=== PATIENT | male | born 1955 | race Caucasian/White ===

== ENCOUNTER 2024-11-01 03:12 | Inpatient (IN) | payer MEDICARE, BC ==
[~2024-11-01] VITALS: Ht 182.9 cm; Wt 95.0 kg
[2024-11-01] VITALS (9 sets, daily range): BP systolic 122; BP diastolic 73; PULSE 78–102; RESP 15–30; O2SAT 94–98
--- NOTE | 2024-11-01 04:09 | ED.PDOC ---
SOB-HPI HPI Comments 68-year-old male came to emergency room via EMS due to shortness of breath. Patient has history of hypertension, thyroid disease and COPD. Was seen at [facility] for shortness of breath and was diagnosed to be COPD exacerbation, Influenza A. Patient was being transferred here due to lack of facilities. Patient was saturating atb90% on room air upon arrival Chief Complaint: Shortness of Breath Time Seen by MD: 03:33 Reviewed notes: Nurses Notes Information Source: Patient Mode of Arrival: EMS Severity: Moderate Timing: Hours Duration: Since onset Context: With Light Exertion PE Risk Factors: None History of: COPD, CHF Prehospital treatment: Oxygen Modifying Factors: Nothing Associated Signs and Symptoms: Wheeze, Cough, Sore Throat, Chest Pain Quality: Squeezing Radiation: No Radiation Review of Systems REVIEW OF SYSTEMS: No fever, no chills, or fatigue HEENT: No sore throat, no earache, no congestion, no neck pain. Cardiac: No chest pain. No palpitations. Lungs: (+)shortness of breath, no cough. GI: No nausea, no vomiting, no diarrhea, no constipation, no abdominal pain : No dysuria, frequency, or urgency. No hematuria. Musculoskeletal: No joint pain , no joint swelling, no extremity edema. Skin: No rash, no itching. Neuro: No headache, no dizziness, no weakness Vital Signs Vital Signs Date Time Temp Pulse Resp B/P (MAP) Pulse Ox O2 Delivery O2 Flow Rate FiO2 11/01/24 04:38 18 93 Nasal Cannula* 6 44 11/01/24 03:42 97.7 94 130/74 (92) Physical Exam General: Awake, alert and oriented. No acute distress. Skin: Skin in warm, dry and intact. Appropriate color for ethnicity. Nailbeds pink with no cyanosis. HEENT: The head is normocephalic and atraumatic. Conjunctivae are clear without exudates or hemorrhage. Sclera is non-icteric. EOM are intact. No signs of n ystagmus. Eyelids are normal in appearance without swelling or lesions. Oral mucosa is pink and moist Neck: The neck is supple with normal range of motion. No JVD. Cardiac: Heart rate and rhythm are normal. No murmurs, gallops, or rubs are auscultated. Respiratory: No signs of respiratory distress. Lung sounds are clear in all lobes bilaterally without rales, ronchi, or wheezes. Abdominal: Abdomen is soft, non-tender without distention. Bowel sounds are present and normoactive in all four quadrants. Extremities: Upper and lower extremities are atraumatic in appearance without deformity or edema. Neurological: The patient is awake, alert and oriented to person, place, and time with normal speech. Speech is clear. There is no facial asymmetry. Psychiatric: Appropriate mood and affect. Good judgement and insight. No visual or auditory hallucinations. Past Medical History PAST MEDICAL HISTORY: COPD, HTN, Thyroid Surgical History: CABG Family History Family History: Reviewed,noncontributory to illness Social History Smoker: Non-Smoker Alcohol: Denies ETOH Use Drugs: Denies Drug Use Lives In: Home Was a procedure done? Was a procedure done?: No Differential Dx Differential Diagnosis: Anxiety, Asthma, Bronchitis, COPD, Pneumonia, Respiratory Distress X-Ray, Labs, Meds, VS Vital Signs Date Time Temp Pulse Resp B/P (MAP) Pulse Ox O2 Delivery O2 Flow Rate FiO2 11/01/24 04:38 18 93 Nasal Cannula* 6 44 11/01/24 03:42 97.7 94 24 130/74 (92) 90 Lab Test 11/01/24 04:13 Range/Units White Blood Count 9.8 4.4-10.8 10^3/uL Red Blood Count 5.22 4.5-5.90 10^6/uL Hemoglobin 16.5 13.5-17.5 g/dL Hematocrit 50.4 41.0-53.0 % Mean Corpuscular Volume 96.6 80.0-100.0 fL Mean Corpuscular Hemoglobin 31.6 28.0-32.0 pg Mean Corpuscular Hemoglobin Concent 32.7 32.0-36.0 g/dL Red Cell Distribution Width 14.8 H 11.8-14.3 % Platelet Count 206 140-450 10^3/uL Mean Platelet Volume 8.1 6.9-10.8 fL Neutrophils (%) (Auto) 94.3 H 37.0-80.0 % Lymphocytes (%) (Auto) 2.6 L 10.0-50.0 % Monocytes (%) (Auto) 2.8 0.0-12.0 % Eosinophils (%) (Auto) 0.0 0.0-7.0 % Basophils (%) (Auto) 0.3 0.0-2.0 % Neutrophils # (Auto) 9.2 H 1.6-8.6 10 ^3/uL Lymphocytes # (Auto) 0.3 L 0.4-5.4 10 ^3/uL Monocytes # (Auto) 0.3 0-1.3 10 ^3/uL Eosinophils # (Auto) 0 0-0.8 10 ^3/uL Basophils # (Auto) 0 0-0.2 10 ^3/uL Nucleated Red Blood Cells 0.0 % Sodium Level 142 136-145 mmol/L Potassium Level 3.7 3.5-5.1 mmol/L Chloride Level 110 H 98-107 mmol/L Carbon Dioxide Level 21 20-31 mmol/L Anion Gap 11 5-15 Blood Urea Nitrogen 19 9-23 mg/dL Creatinine 1.07 0.700-1.30 mg/dL Glomerular Filtration Rate Calc 75 >90 mL/min BUN/Creatinine Ratio 17.8 10.0-20.0 Serum Glucose 215 H 74-106 mg/dL Calcium Level 8.3 L 8.7-10.4 mg/dL Total Bilirubin < 0.2 L 0.2-1.0 mg/dL Aspartate Amino Transferase (AST) 54 H 13-40 U/L Alanine Aminotransferase (ALT) 27 7-40 U/L Alkaline Phosphatase 67 46-116 U/L Troponin I High Sensitivity 157 *H </=54 ng/L Total Protein 6.2 5.7-8.2 g/dL Albumin 3.7 3.2-4.8 g/dL Current Medications Medications (Trade) Dose Ordered Sig/Snehal Route Start Time Stop Time Status Last Admin Albuterol (Ventolin Medneb) 2.5 mg ONCE ONCE NEB 11/01/24 04:15 11/01/24 04:16 DC 11/01/24 04:48 Time of 1ST Reevaluation: 04:12 Reevaluation 1ST: Unchanged Patient Education/Counseling: Diagnosis, Treatment Family Education/Counseling: No Family Present Departure 1 Departure Time of Disposition: 04:08 Impression: Primary Impression: COPD exacerbation Additional Impression: Influenza Disposition: 09 ADMITTED INPATIENT Comments 68-year-old male transferred from [place] with COPD exacerbation, influenza infection. Patient admitted for further treatment, evaluation and monitoring. Extensive evaluation was performed in attempt to identify or rule out: (See differential diagnosis section) The following tests were ordered, and results were reviewed by me: (See d iagnostic results section) The following test were independently interpreted by me: N/A I reviewed and agreed with the following test results read by other providers: N/A I reviewed the following notes from the pt's past medical encounters: (None available at this time) Additional information was gathered from interviewing the following independent historians: N/A Discussion of management or test interpretation with external physician/other qualified health client care representative: N/A Addressed [ ]one or more chronic illnesses with severe exacerbation, progression, or side effects of treatment: [ ]an acute or chronic illness that poses a threat to life or bodily function: [ ] Decision regarding hospitalization or escalation of hospital level of care: Risk and benefits of admission for further treatment of patient's condition was considered. Due to patient's current clinical condition, high risk of decline and poor outcome if discharged and need for further inpatient management and monitoring, patient will be admitted to the hospital. Drug therapy requiring intensive monitoring for toxicity: N/A Parenteral controlled substances: N/A Decision regarding elective major surgery with identified patient or procedure risk factors: N/A Decision regarding emergency major surgery: N/A Decision not to resuscitate or to de-escalate care because of poor prognosis: N/A Diagnosis or treatment significantly limited by social determinants of health: N/A Decision regarding hospitalization or escalation of hospital level of care: Risks and benefits of admission for further treatment of patient's condition was considered however due to patient's stable condition patient will be discharged to follow up closely or return to care for worsening of condition or inability to follow up. Critical Care Note Critical Care Time?: No Stability Stability form required: No Heart Score Heart Score: Heart Score Response (Comments) Value History Moderate Suspicious 1 EKG Repolarization Disturb 1 Age >65 2 Risk Factors >3 or Hx ASHD 2 Troponin >3 x's Normal limit 2 Total 8 I personally scribed for MAC PUTNAM MD ([email or web address]) on 11/01/24 at 04:17. Daniela ctronically submitted by Enoch Leija ([facility]). I personally scribed for MAC PUTNAM MD ([email or web address]) on 11/01/24 at 04:18. Electronically submitted by Enoch Leija ([facility]). I personally scribed for MAC PUTNAM MD ([email or web address]) on 11/01/24 at 04:55. Electronically submitted by Enoch Leija ([facility]). MAC PUTNAM MD Nov 01, 2024 04:09
[2024-11-01 04:33] LABS: Basophils # (auto) 0 10 ^3/uL (0-0.2); Basophils % (auto) 0.3 % (0.0-2.0); Eosinophils # (auto) 0 10 ^3/uL (0-0.8); Hematocrit 50.4 % (41.0-53.0); Hemoglobin 16.5 g/dL (13.5-17.5); Lymphocytes # (auto) 0.3 10 ^3/uL (0.4-5.4); Lymphocytes % (auto) 2.6 % (10.0-50.0); Mean Corpuscular Hemoglobin 31.6 pg (28.0-32.0); Mean Corpuscular Hgb Conc. 32.7 g/dL (32.0-36.0); Mean Corpuscular Volume 96.6 fL (80.0-100.0); Monocytes # (auto) 0.3 10 ^3/uL (0-1.3); Monocytes % (auto) 2.8 % (0.0-12.0); Neutrophils # (auto) 9.2 10 ^3/uL (1.6-8.6); Neutrophils % (auto) 94.3 % (37.0-80.0); Platelet Count (auto) 206 10^3/uL (140-450); Red Blood Cells 5.22 10^6/uL (4.5-5.90); Red Cell Distribution Width 14.8 % (11.8-14.3); White Blood Cell 9.8 10^3/uL (4.4-10.8)
[2024-11-01 04:48] LABS: Alanine Aminotransferase 27 U/L (7-40); Albumin 3.7 g/dL (3.2-4.8); Alkaline Phosphatase 67 U/L (46-116); Anion Gap 11 (5-15); BUN/Creatinine Ratio 17.8 (10.0-20.0); Blood Urea Nitrogen 19 mg/dL (9-23); Carbon Dioxide 21 mmol/L (20-31); Potassium 3.7 mmol/L (3.5-5.1); Sodium 142 mmol/L (136-145); Total Protein 6.2 g/dL (5.7-8.2)
[2024-11-01] MEDS: ALBUTEROL SULF 2.5 MG/0.5ML(0.5%) NEB SOLN NEB ONE (04:48)
[2024-11-01 04:50] LABS: Aspartate Aminotransferase 54 U/L (13-40); Bilirubin, Total < 0.2 mg/dL (0.2-1.0); Calcium 8.3 mg/dL (8.7-10.4); Chloride 110 mmol/L (98-107); Glucose 215 mg/dL (74-106)
--- NOTE | 2024-11-01 05:34 | DVH ---
EXAM: XY CHEST XRAY 1 VIEW Indication: Shortness of breath Technique: Single frontal view of the chest was obtained Comparison: None FINDINGS: Lines and Tubes: None Lungs: Mild pulmonary vascular congestion. Pleura: No effusion. No pneumothorax. Cardiomediastinal contours: Mild cardiomegaly. Bones: No acute osseous abnormality. IMPRESSION: Mild cardiomegaly with pulmonary vascular congestion.
[2024-11-01] MEDS: ACETAMINOPHEN 325 MG TAB PO ONE (12:51)
[2024-11-01] MEDS ORDERED: ALBUTEROL SULF 2.5 MG/0.5ML(0.5%) NEB SOLN NEB PRN ×2 (13:15→13:30)
[2024-11-01] MEDS ORDERED: IPRATROPIUM BROM 0.5 MG/2.5ML INH SOL NEB SCH (14:00)
[2024-11-01] MEDS ORDERED: ALBUTEROL SULF 2.5 MG/0.5ML(0.5%) NEB SOLN NEB SCH (14:00)
--- NOTE | 2024-11-01 14:03 | DVHHP2 ---
History of Present Illness Reason for Visit: Shortness of breaths due to COPD exacerbation History of Present Illness This is a 68-year-old male with history of COPD not on oxygen and CHF presents to ED via EMS with chief complaint of shortness of breaths that started early this morning. The patient was recently seen at [facility] for shortness of breaths in which he was diagnosed with COPD exacerbation and influenza A. He was transferred from there to this facility for further evaluation and recommendation. During evaluation of patient, currently on 5 L n lawrence cannula with SpO2 91% at the bedside monitor. He states that he was diagnosed with COPD many many years ago due to smoking history currently smokes less than one pack of cigarette a day and has not been on oxygen for several years. He is concerned about his symptoms and would like to be further evaluated. The patient will be admitted under hospitalist care to the medical-surgical unit for further evaluation and recommendation. The patient denies fever, chills, headache, dizziness, palpitation, chest pain, nausea, vomiting, abdominal pain, diarrhea, constipation and other associated symptoms. The plan has been discussed with the patient and primary RN in which all questions concerns have been addressed. Cardiovascular: HTN Pulmonary: COPD Past Surgical History: CABG Family History: None Smoke: <1 pack per day ALCOHOL: none Drugs: None Lives: with Family Domestic Violence: Neg Review of Systems Respiratory: Shortness of breath Allergies: Coded Allergies: Penicillins (Unverified Allergy, Unknown, 11/01/24) Medications Current Medications Medications Dose Ordered Sig/Snehal Route Start Time Stop Time Status Last Admin Dose Admin Ipratropium [place] 0.5 mg Q4HR NEB 11/01/24 14:00 UNV Enoxaparin Sodium 40 mg DAILY SC 11/02/24 10:00 UNV Albuterol 2.5 mg Q2HPRN PRN NEB 11/01/24 13:30 UNV Albuterol 2.5 mg Q4HR NEB 11/01/24 14:00 UNV Exam Vital Signs Vital Signs Date Time Temp Pulse Resp B/P (MAP) Pulse Ox O2 Delivery O2 Flow Rate FiO2 11/01/24 13:22 91 11/01/24 12:00 16 133/65 (87) 90 11/01/24 08:32 Nasal Cannula* 6 44 11/01/24 05:04 97.7 97.7 General Appearance: Alert, Oriented X3, Cooperative, No acute distress HEENT: Atraumatic, PERRLA, Mucous membr. moist/pink Respiratory: Other (Inspiratory wheezing throughout) Cardiovascular: Regular rate, Normal S1, Normal S2, No murmurs Abdominal: Normal bowel sounds, Soft, No tenderness, No hepatospenomegaly, No masses Extremities: No clubbing, No cyanosis, No edema, Normal pulses, No tenderness/swelling Skin: No rashes, No breakdown Neuro: Normal speech, Strength at 5/5 X4 ext, Normal tone, Sensation intact, Cranial nerves 3-12 NL Psych/Mental Status: Mental status NL Labs/Xrays Labs Test 11/01/24 06:13 11/01/24 04:13 Range/Units Troponin I High Sensitivity 147 *H </=54 ng/L White Blood Count 9.8 4.4-10.8 10^3/uL Red Blood Count 5.22 4.5-5.90 10^6/uL Hemoglobin 16.5 13.5-17.5 g/dL Hematocrit 50.4 41.0-53.0 % Mean Corpuscular Volume 96.6 80.0-100.0 fL Mean Corpuscular Hemoglobin 31.6 28.0-32.0 pg Mean Corpuscular Hemoglobin Concent 32.7 32.0-36.0 g/dL Red Cell Distribution Width 14.8 H 11.8-14.3 % Platelet Count 206 140-450 10^3/uL Mean Platelet Volume 8.1 6.9-10.8 fL Neutrophils (%) (Auto) 94.3 H 37.0-80.0 % Lymphocytes (%) (Auto) 2.6 L 10.0-50.0 % Monocytes (%) (Auto) 2.8 0.0-12.0 % Eosinophils (%) (Auto) 0.0 0.0-7.0 % Basophils (%) (Auto) 0.3 0.0-2.0 % Neutrophils # (Auto) 9.2 H 1.6-8.6 10 ^3/uL Lymphocytes # (Auto) 0.3 L 0.4-5.4 10 ^3/uL Monocytes # (Auto) 0.3 0-1.3 10 ^3/uL Eosinophils # (Auto) 0 0-0.8 10 ^3/uL Basophils # (Auto) 0 0-0.2 10 ^3/uL Nucleated Red Blood Cells 0.0 % Sodium Level 142 136-145 mmol/L Potassium Level 3.7 3.5-5.1 mmol/L Chloride Level 110 H 98-107 mmol/L Carbon Dioxide Level 21 20-31 mmol/L Anion Gap 11 5-15 Blood Urea Nitrogen 19 9-23 mg/dL Creatinine 1.07 0.700-1.30 mg/dL Glomerular Filtration Rate Calc 75 >90 mL/min BUN/Creatinine Ratio 17.8 10.0-20.0 Serum Glucose 215 H 74-106 mg/dL Calcium Level 8.3 L 8.7-10.4 mg/dL Total Bilirubin < 0.2 L 0.2-1.0 mg/dL Aspartate Amino Transferase (AST) 54 H 13-40 U/L Alanine Aminotransferase (ALT) 27 7-40 U/L Alkaline Phosphatase 67 46-116 U/L Total Protein 6.2 5.7-8.2 g/dL Albumin 3.7 3.2-4.8 g/dL ORDERING PHYSICIAN: MAC PUTNAM MD PROCEDURE(s): CXR1 - CHEST XRAY 1 VIEW REASON: Shortness of breath ORDER NUMBER(s): [id number], ACCESSION NUMBER(s): [id number] EXAM: XY CHEST XRAY 1 VIEW Indication: Shortness of breath Technique: Single frontal view of the chest was obtained Comparison: None FINDINGS: Lines and Tubes: None Lungs: Mild pulmonary vascular congestion. Pleura: No effusion. No pneumothorax. Cardiomediastinal contours: Mild cardiomegaly. Bones: No acute osseous abnormality. IMPRESSION: Mild cardiomegaly with pulmonary vascular congestion. ATED BY: ELLA ASHRAF MD DICTATED DATE/TIME: 11/01/24531 SIGNED BY: ELLA ASHRAF MD SIGNED DATE/TIME: 11/01/24531 Assessment/Plan Assessment/Plan Shortness of breaths due to COPD exacerbation---presents to ED via EMS with complaint of shortness of breaths currently on 5 L nasal cannula with SpO2 91% History of home oxygen use several years ago currently without Smokes less than one pack of cigarette a day Patient went to [facility] for shortness of breaths and was diagnosed with COPD exacerbation and influenza A COVID-19, influenza a and B pending Admit to medical-surgical unit Reviewed CBC which is normal Reviewed BNP which is normal Troponin 157 now 147 Reviewed chest x-ray which shows mild cardiomegaly with pulmonary vascular congestion Med neb q.4 hours Albuterol q.2h p.r.n. shortness of breath IV steroid now and daily IV Lasix now Please evaluate consideration of oxygen for home Systolic/diastolic heart failure BNP pending Echocardiogram pending Consider Cardiology consult if further evaluation is needed Reconcile home medication DVT prophylaxis PUD prophylaxis not indicated no history of GERD Labs in a.m. Discussed plan of care with the patient in which all questions concerns have been addressed Plan discussed with: Patient My Orders Orders - DORINA EDWARDS Procedure Category Date Status Time Admit ADMIT 11/01/24 Transmitted 13:08 2 Gm Sodium Diet DIET 11/01/24 Transmitted Lunch Complete Blood Count LAB 11/02/24 Verified 04:00 Comprehensive LAB 11/02/24 Verified Metabolic Panel 04:00 Condition: Fair VIOLETA 11/01/24 In Process 13:08 Bedrest With Bathroom VIOLETA 11/01/24 In Process Privileg 13:08 Troponin-I Hs LAB 11/01/24 Logged 13:08 B-Type Natriuretic LAB 11/01/24 Logged Peptide 13:11 Ipratropium Medneb PHA 11/01/24 Logged (Atrovent Medneb) 14:00 Enoxaparin Sodium PHA 11/02/24 Logged (Lovenox) 10:00 Albuterol Medneb PHA 11/01/24 Logged (Ventolin Medneb) 13:30 Albuterol Medneb PHA 11/01/24 Logged (Ventolin Medneb) 14:00 Date of Service: Nov 01, 2024 Billing Provider: DORINA EDWARDS Common Visit Codes: [id number] INP/OBS CARE (HIGH) DORINA EDWARDS Nov 01, 2024 14:03
[2024-11-01] MEDS: IPRATROPIUM BROM 0.5 MG/2.5ML INH SOL NEB SCH (14:35)
[2024-11-01] MEDS: ALBUTEROL SULF 2.5 MG/0.5ML(0.5%) NEB SOLN NEB SCH (14:35)
[2024-11-01] MEDS: FUROSEMIDE 20 MG/2 ML VIAL IV ONE (15:33)
[2024-11-01 18:29] LABS: Urine Bacteria None Seen /hpf (None Seen)
[2024-11-01 18:39] LABS: Urine Blood TRACE /uL (Negative); Urine Clarity Clear (Clear); Urine Color Yellow (Yellow); Urine Mucus FEW (None Seen); Urine Protein, UAD TRACE (Negative); Urine Squamous Epithelial Cell None Seen /hpf (<5); Urine Urobilinogen Normal (Negative); Urine WBC 2 /hpf (0 - 3); Urine pH 5.5 (5.0-9.0)
[2024-11-01 18:46] LABS: Urine Specific Gravity > 1.035 (1.001-1.035)
[2024-11-01 22:04] LABS: Rapid Influenza B Negative (Negative)
[2024-11-01 22:05] LABS: Rapid Influenza A Positive (Negative)
[2024-11-01 22:08] LABS: COVID19 ANTIGEN SOFIA FIA NEGATIVE (NEGATIVE)
[2024-11-02] VITALS (19 sets, daily range): BP systolic 93–120; BP diastolic 49–75; PULSE 64–94; RESP 16–20; TEMP 97.2–98.8; O2SAT 91–98
[2024-11-02] MEDS: ACETAMINOPHEN 325 MG TAB PO PRN (00:53)
[2024-11-02 07:00] LABS: Basophils # (auto) 0 10 ^3/uL (0-0.2); Basophils % (auto) 0.2 % (0.0-2.0); Eosinophils # (auto) 0 10 ^3/uL (0-0.8); Eosinophils % (auto) 0.1 % (0.0-7.0); Hematocrit 50.6 % (41.0-53.0); Hemoglobin 16.7 g/dL (13.5-17.5); Lymphocytes # (auto) 1.4 10 ^3/uL (0.4-5.4); Lymphocytes % (auto) 13.8 % (10.0-50.0); Mean Corpuscular Volume 96.8 fL (80.0-100.0); Monocytes # (auto) 1.3 10 ^3/uL (0-1.3); Monocytes % (auto) 12.5 % (0.0-12.0); Neutrophils # (auto) 7.4 10 ^3/uL (1.6-8.6); Neutrophils % (auto) 73.4 % (37.0-80.0); Nucleated Red Blood Cells % 0.1 %; Platelet Count (auto) 196 10^3/uL (140-450); Red Blood Cells 5.22 10^6/uL (4.5-5.90); Red Cell Distribution Width 14.9 % (11.8-14.3); White Blood Cell 10.1 10^3/uL (4.4-10.8)
[2024-11-02 07:25] LABS: Albumin 3.9 g/dL (3.2-4.8); Alkaline Phosphatase 72 U/L (46-116); Anion Gap 6 (5-15); BUN/Creatinine Ratio 28.2 (10.0-20.0); Calcium 9.6 mg/dL (8.7-10.4); Carbon Dioxide 29 mmol/L (20-31); Chloride 106 mmol/L (98-107); Sodium 141 mmol/L (136-145)
[2024-11-02 07:26] LABS: Total Protein 6.6 g/dL (5.7-8.2)
[2024-11-02 07:28] LABS: Alanine Aminotransferase 48 U/L (7-40); Aspartate Aminotransferase 127 U/L (13-40); Bilirubin, Total 0.2 mg/dL (0.2-1.0); Blood Urea Nitrogen 31 mg/dL (9-23); Glucose 114 mg/dL (74-106); Potassium 5.1 mmol/L (3.5-5.1)
[2024-11-02] MEDS: ENOXAPARIN SOD 40 MG/0.4 ML SYRINGE SC SCH (10:00)
[2024-11-02] MEDS ORDERED: ENOXAPARIN SOD 40 MG/0.4 ML SYRINGE SC SCH (10:00)
--- NOTE | 2024-11-02 10:20 | DVHPN2 ---
Subjective The patient is seen and examined at bedside. Still complain of severe shortness a breath. Reviewed: Care Plan, H&P, Labs, Medications, Previous Orders, Radiology Changes from previous H/P or p: No Changes Respiratory: Shortness of breath Objective Vitals Vital Signs Date Time Temp Pulse Resp B/P (MAP) Pulse Ox O2 Delivery O2 Flow Rate FiO2 11/02/24 10:12 84 16 98 11/02/24 10:06 Nasal Cannula 3.0 11/02/24 10:06 32 11/02/24 08:48 97.8 101/49 (66) 97.8 Intake/Output Intake and Output 11/02/24 07:00 Intake Total 620 ml Balance 620 ml Intake Oral 620 ml # Bowel Movements 1 General Appearance: Alert, Oriented X3, Cooperative, No acute distress HEENT: Atraumatic, PERRLA, EOMI, Mucous membr. moist/pink Neck: Supple Lungs: Clear to auscultation, Normal air movement Cardiovascular: Regular rate, Normal S1, Normal S2, No murmurs, Gallops, Rubs Abdomen: Normal bowel sounds, Soft, No tenderness, No hepatospenomegaly Neuro: Cranial nerves 3-12 NL Psych/Mental Status: Mental status NL Medications Current Medications Medications Dose Ordered Sig/Snehal Route Start Time Stop Time Status Last Admin Dose Admin Ipratropium [place] 0.5 mg Q4HR NEB 11/01/24 14:00 11/02/24 10:06 0.5 MG Enoxaparin Sodium 40 mg DAILY SC 11/02/24 10:00 Albuterol 2.5 mg Q2HPRN PRN NEB 11/01/24 13:30 Albuterol 2.5 mg Q4HR NEB 11/01/24 14:00 11/02/24 10:06 2.5 MG Acetaminophen 650 mg Q6HP PRN PO 11/02/24 00:00 11/02/24 00:53 650 MG Laboratory Results Laboratory Tests 11/02/24 05:50 Chemistry Test 11/02/24 05:50 Albumin 3.9 g/dL (3.2-4.8) Calcium Level 9.6 mg/dL (8.7-10.4) Total Protein 6.6 g/dL (5.7-8.2) Cardiac Markers Test 11/01/24 13:50 B-Type Natriuretic Peptide 65.26 pg/mL (0-100) LFT Test 11/02/24 05:50 Alanine Aminotransferase (ALT) 48 U/L (7-40) H Alkaline Phosphatase 72 U/L (46-116) Aspartate Amino Transferase (AST) 127 U/L (13-40) H Total Bilirubin 0.2 mg/dL (0.2-1.0) Urinalysis Test 11/01/24 06:29 Urine Color Yellow (Yellow) Urine Clarity Clear (Clear) Urine pH 5.5 (5.0-9.0) Urine Specific [place] > 1.035 (1.001-1.035) Urine Protein Trace (Negative) H Urine Ketones Negative (Negative) Urine Blood Trace /uL (Negative) H Urine Nitrite Negative (Negative) Urine Bilirubin Negative (Negative) Urine Urobilinogen Normal mg/dL (Negative) Urine Leukocyte Esterase Negative /uL (Negative) Urine RBC 1 /hpf (0 - 3) Urine WBC 2 /hpf (0 - 3) Urine Squamous Epithelial Cells None seen /hpf (<5) Urine Bacteria None seen /hpf (None Seen) Urine Mucus Few (None Seen) Urine Glucose Normal mg/dL (Normal) Labs and/or images reviewed: Labs reviewed by me Assessment/Plan Assessment/Plan Shortness of breaths due to COPD exacerbation, currently on 5 L nasal cannula Tobacco abuse History of influenza A positive COVID-19, influenza a and B negative Pulmonary vascular congestion Systolic congestive heart failure Continuing current management. Continuing with nebulizer, Solu-Medrol, IV Lasix. Waiting for echo to be done. This medical document was created using an electronic medical record system with [employer] direct computerized dictation system. Although this document has been carefully reviewed, there may still be some phonetic and typographical errors. These areas are purely typographical due to imperfections of the software programs, and do not reflect any compromise in the patient's medical care. Plan discussed with: Patient Date of Service: Nov 02, 2024 Billing Provider: BRADLEY GLYNN MD Common Visit Codes: [id number] INP/OBS CARE(HIGH) BRADLEY GLYNN MD Nov 02, 2024 10:20
[2024-11-03] VITALS (14 sets, daily range): BP systolic 100–113; BP diastolic 59–69; PULSE 65–86; RESP 14–20; TEMP 97.6–98.6; O2SAT 88–98
--- NOTE | 2024-11-03 08:35 | DVHSR ---
APPROVED REPORT EXAM: Two-dimensional and M-mode echocardiogram with Doppler and color Doppler. Blood Pressure: 133/65 mmHg INDICATION Systolic/ Diastolic heart failure Surgery/Intervention CABG: RISK FACTORS Height: 70, Weight: 209 DIMENSIONS LVDd4.5 (3.8-5.7cm)LA (2D)4.2 (1.9-4.0cm)Aortic Root4.4 (2.0-3.7cm) LVDs3.6 (2.5-4.0cm)LA (MM) (1.9-4.0cm)Aortic Cusp Exc2.0 (1.5-2.0cm) EF (%) 50.0 (55-70%)Rt. Atrium (1.9-4.0cm)Asc. Aorta3.5 cm Mitral Valve MitralMitral Stenosis E wave0.62m/sMV Mean GR.mmHg A wave0.73m/sMV Peak GR.mmHg E/A ratio0.82D MVAcm2 DECEL [id number] 1/2 Timems Aortic Valve Aortic ValveAortic Stenosis V10.79m/Tammy Mean GR.1mmHg V20.78m/Tammy Peak GR.2mmHg LVOT Diameter2.4 (1.8-2.4cm)Doppler AVA4.58cm2 Pulmonic Valve V20.82m/s LEFT VENTRICLE Normal left ventricular size. There is [id number] concentric left ventricular hypertrophy. Ej ection fraction is estimated at 50-55%. There is no gross wall motion abnormalities but endocardial definition is suboptimal. Diastolic function is not well assessed. E to E prime ratio is in the ind eterminate range. RIGHT VENTRICLE Not very well visualized. It is likely mildly dilated in size. Systolic function is likely preserve d. ATRIA Both atria are of normal size. MITRAL VALVE Normal structure and function. PULMONIC VALVE Likely normal. TRICUSPID VALVE Likely of normal structure and function. No significant regurgitation. PA systolic pressure is not adequately estimated. AORTIC VALVE Likely trileaflet in morphology. Leaflets are mildly calcified. No significant stenosis or regurgit ation. GREAT VESSELS Aortic root root is dilated in size and measures 4.4 cm at the sinuses of Valsalva. PERICARDIAL EFFUSION No significant effusion. IVC is of normal size and collapses normally with inspiration. Other Information Technically limited study due to body habitus. Conclusion The study is technically limited. Normal left ventricular size with low-normal systolic function. [id number] concentric left ventricular hypertrophy. Likely mildly dilated right ventricle with preserved systolic function. Mildly calcified aortic valve with no significant stenosis. PA systolic pressure is not adequately assessed. Mildly dilated aortic root measuring 4.4 cm in diameter at the level of the sinuses of Valsalva.
--- NOTE | 2024-11-03 10:45 | DVHPN2 ---
Subjective The patient is seen and examined at bedside. Still complain of severe shortness a breath. Reviewed: Care Plan, H&P, Labs, Medications, Previous Orders, Radiology Respiratory: Shortness of breath Objective Vitals Vital Signs Date Time Temp Pulse Resp B/P (MAP) Pulse Ox O2 Delivery O2 Flow Rate FiO2 11/03/24 10:31 82 16 98 11/03/24 09:00 98.6 111/65 (80) 98.6 11/03/24 06:59 Nasal Cannula* 3 32 Intake/Output Intake and Output 11/03/24 07:00 Intake Total 2500 ml Balance 2500 ml Intake Oral 2500 ml # Voids 6 # Bowel Movements 1 General Appearance: Alert, Oriented X3, Cooperative, No acute distress HEENT: Atraumatic, PERRLA, EOMI, Mucous membr. moist/pink Neck: Supple Lungs: Clear to auscultation, Normal air movement Cardiovascular: Regular rate, Normal S1, Normal S2, No murmurs, Gallops, Rubs Abdomen: Normal bowel sounds, Soft, No tenderness, No hepatospenomegaly Neuro: Cranial nerves 3-12 NL Psych/Mental Status: Mental status NL Medications Current Medications Medications Dose Ordered Sig/Snehal Route Start Time Stop Time Status Last Admin Dose Admin Ipratropium [place] 0.5 mg Q4HR NEB 11/01/24 14:00 11/03/24 10:21 0.5 MG Enoxaparin Sodium 40 mg DAILY SC 11/02/24 10:00 11/03/24 10:14 40 MG Albuterol 2.5 mg Q2HPRN PRN NEB 11/01/24 13:30 Albuterol 2.5 mg Q4HR NEB 11/01/24 14:00 11/03/24 10:21 2.5 MG Acetaminophen 650 mg Q6HP PRN PO 11/02/24 00:00 11/03/24 10:15 650 MG Laboratory Results Laboratory Tests 11/02/24 05:50 Urinalysis Test 11/01/24 06:29 Urine Color Yellow (Yellow) Urine Clarity Clear (Clear) Urine pH 5.5 (5.0-9.0) Urine Specific [place] > 1.035 (1.001-1.035) Urine Protein Trace (Negative) H Urine Ketones Negative (Negative) Urine Blood Trace /uL (Negative) H Urine Nitrite Negative (Negative) Urine Bilirubin Negative (Negative) Urine Urobilinogen Normal mg/dL (Negative) Urine Leukocyte Esterase Negative /uL (Negative) Urine RBC 1 /hpf (0 - 3) Urine WBC 2 /hpf (0 - 3) Urine Squamous Epithelial Cells None seen /hpf (<5) Urine Bacteria None seen /hpf (None Seen) Urine Mucus Few (None Seen) Urine Glucose Normal mg/dL (Normal) Assessment/Plan Assessment/Plan Shortness of breaths due to COPD exacerbation, currently on 5 L nasal cannula Tobacco abuse History of influenza A positive COVID-19, influenza a and B negative Pulmonary vascular congestion Systolic congestive heart failure Continuing current management. Continuing with nebulizer, Solu-Medrol, IV Lasix. Waiting for echo to be done. This medical document was created using an electronic medical record system with [employer] direct computerized dictation system. Although this document has been carefully reviewed, there may still be some phonetic and typographical errors. These areas are purely typographical due to imperfections of the software programs, and do not reflect any compromise in the patient's medical care. BRADLEY GLYNN MD Nov 03, 2024 10:45
[2024-11-03] MEDS ORDERED: METH4PAK PO (11:26)
[2024-11-03] MEDS ORDERED: ALBUAER3 IN (11:26)
[2024-11-03] MEDS ORDERED: AZIT-185 PO (11:26)
--- NOTE | 2024-11-03 11:28 | DVHDS2 ---
Discharge Summary Date of Admission Nov 01, 2024 at 13:08 Date of Discharge: Nov 03, 2024 Admitting Diagnosis Shortness of breaths due to COPD exacerbation, currently on 5 L nasal cannula Tobacco abuse History of influenza A positive COVID-19, influenza a and B negative Pulmonary vascular congestion Systolic congestive heart failure Labs/Diagnostic Data: Laboratory Results Test 11/02/24 05:50 11/01/24 21:38 11/01/24 13:50 11/01/24 06:29 White Blood Count 10.1 10^3/uL (4.4-10.8) Red Blood Count 5.22 10^6/uL (4.5-5.90) Hemoglobin 16.7 g/dL (13.5-17.5) Hematocrit 50.6 % (41.0-53.0) Mean Corpuscular Volume 96.8 fL (80.0-100.0) Mean Corpuscular Hemoglobin 32.0 pg (28.0-32.0) Mean Corpuscular Hemoglobin Concent 33.0 g/dL (32.0-36.0) Red Cell Distribution Width 14.9 % (11.8-14.3) Platelet Count 196 10^3/uL (140-450) Mean Platelet Volume 8.3 fL (6.9-10.8) Neutrophils (%) (Auto) 73.4 % (37.0-80.0) Lymphocytes (%) (Auto) 13.8 % (10.0-50.0) Monocytes (%) (Auto) 12.5 % (0.0-12.0) Eosinophils (%) (Auto) 0.1 % (0.0-7.0) Basophils (%) (Auto) 0.2 % (0.0-2.0) Neutrophils # (Auto) 7.4 10 ^3/uL (1.6-8.6) Lymphocytes # (Auto) 1.4 10 ^3/uL (0.4-5.4) Monocytes # (Auto) 1.3 10 ^3/uL (0-1.3) Eosinophils # (Auto) 0 10 ^3/uL (0-0.8) Basophils # (Auto) 0 10 ^3/uL (0-0.2) Nucleated Red Blood Cells 0.1 % Sodium Level 141 mmol/L (136-145) Potassium Level 5.1 mmol/L (3.5-5.1) Chloride Level 106 mmol/L (98-107) Carbon Dioxide Level 29 mmol/L (20-31) Anion Gap 6 (5-15) Blood Urea Nitrogen 31 mg/dL (9-23) Creatinine 1.10 mg/dL (0.700-1.30) Glomerular Filtration Rate Calc 73 mL/min (>90) BUN/Creatinine Ratio 28.2 (10.0-20.0) Serum Glucose 114 mg/dL (74-106) Calcium Level 9.6 mg/dL (8.7-10.4) Total Bilirubin 0.2 mg/dL (0.2-1.0) Aspartate Amino Transferase (AST) 127 U/L (13-40) Alanine Aminotransferase (ALT) 48 U/L (7-40) Alkaline Phosphatase 72 U/L (46-116) Total Protein 6.6 g/dL (5.7-8.2) Albumin 3.9 g/dL (3.2-4.8) Influenza Type A Antigen Positive (Negative) Influenza Type B Antigen Negative (Negative) SARS-CoV-2 Antigen (Rapid) Negative (NEGATIVE) Troponin I High Sensitivity 147 ng/L (</=54) B-Type Natriuretic Peptide 65.26 pg/mL (0-100) Urine Color Yellow (Yellow) Urine Clarity Clear (Clear) Urine pH 5.5 (5.0-9.0) Urine Specific [place] > 1.035 (1.001-1.035) Urine Protein Trace (Negative) Urine Ketones Negative (Negative) Urine Blood Trace /uL (Negative) Urine Nitrite Negative (Negative) Urine Bilirubin Negative (Negative) Urine Urobilinogen Normal mg/dL (Negative) Urine Leukocyte Esterase Negative /uL (Negative) Urine RBC 1 /hpf (0 - 3) Urine WBC 2 /hpf (0 - 3) Urine Squamous Epithelial Cells None seen /hpf (<5) Urine Bacteria None seen /hpf (None Seen) Urine Mucus Few (None Seen) Urine Glucose Normal mg/dL (Normal) Other Laboratory Tests 11/02/24 05:50 Brief Hx & Hospital Course: This is a 68 years old male with past medical history of COPD, not on home oxygen. The patient also had congestive heart failure. The patient come to emergency department because severe shortness for breath. The patient came to [facility]. The patient was diagnosis with COPD exacerbation and influenza A. The patient was transferred here for further management. The patient had for tests for COVID-19 and influenza B which is negative. The patient was admitted to treat for influenza a and COPD exacerbation. He was given Tamiflu and IV antibiotic in subsequently he doing better. Today he has had less shortness for breath. I request to see if he qualified for home oxygen. However his ABG showed P oxygen of 60 so he not qualify for home oxygen. I am discharge him home. Continuing antibiotic and steroid taper dose. Follow up with primary care physician 1-2 weeks. Physical exam: HEENT: Normocephalic atraumatic pupils equal react to light and accommodation. Extraocular muscles intact, conjunctiva pink, oropharynx moist, no thrush, no exudate. Lymphatic: No lymphadenopathy Cardiovascular exam: S1, S2 was heard. No murmurs, rubs, gallops Lung: Clear on auscultation bilaterally, no wheeze, rale, rhonchi. GI: Abdominal soft, nondistended, nontenderness, positive bowel sounds. Extremity: No crepitus, cyanosis, edema. Pedal pulses present bilateral. Full range of motion. Skin: Normal turgor, no rash. Psych: Alert, oriented x3. Neurology: No focal deficits, cranial nerve II to XII grossly intact. This medical document was created using an electronic medical record system with [employer] direct computerized dictation system. Although this document has been carefully reviewed, there may still be some phonetic and typographical errors. These areas are purely typographical due to imperfections of the software programs, and do not reflect any compromise in the patient's medical care. Condition at Discharge: Stable Final Diagnosis/Problems List Shortness of breaths due to COPD exacerbation Tobacco abuse History of influenza A positive COVID-19, influenza a and B negative Pulmonary vascular congestion Systolic congestive heart failure Discharge Disposition: Home Discharge Instruct/Medications Diet: Cardiac 2g Na,low cholest Activity: No Restrictions, As Tolerated Follow Up/Referral: pcp 1-2 weeks Medications: zpak until finish metrodose fernando until finish tamiflu 75mg bid Discharge Statement: "Patient was advised to return to the ER or call 911 if any headaches, dizziness, shortness of breath, chest pain, abdominal pain, bleeding, fevers, or worsening of medical condition. Patient was counseled about treatment plan, medications, possible side effects, patientverbalized understanding. All questions were answered to the best of my ability. This discharge took greater then 30 minutes in planning, reviewing documentation, counseling the patient, and discussing with other team members." ASSESSMENT ASSESSMENT Assessment copd exacerbation Date of Service: Nov 03, 2024 Billing Provider: BRADLEY LGYNN MD Common Visit Codes: 03811-LZC/OBS DISCH DAY >30min BRADLEY GLYNN MD Nov 03, 2024 11:28
[2024-11-03 12:05] LABS: Base Excess 2.1 mmol/L (-2.0-3.0)
[2024-11-04] MEDS ORDERED: OSEL75CA5 PO (10:25)
== END 2024-11-03 14:50 | disposition home or self-care (01) | DRG 193 ==
LOC: ER 03:12 → OVERFLOW 13:08 → ER 13:11 → WEST WING 23:20
PROVIDERS: ADMIT Nurse Practitioner Family; ATTEND Internal Medicine
DX: J10.1 Influenza due to other identified influenza virus with other respiratory manifestations (principal); I21.A1 Myocardial infarction type 2; J96.00 Acute respiratory failure, unspecified whether with hypoxia or hypercapnia; J44.1 Chronic obstructive pulmonary disease with (acute) exacerbation; I50.22 Chronic systolic (congestive) heart failure; Z20.822 Contact with and (suspected) exposure to COVID-19; I11.0 Hypertensive heart disease with heart failure; F17.210 Nicotine dependence, cigarettes, uncomplicated; Z88.0 Allergy status to penicillin; Z95.1 Presence of aortocoronary bypass graft; Z79.899 Other long term (current) drug therapy
CPT/HCPCS: 36415; 36600; 71045; 80053; 81001; 82805; 83880; 84484; 85025; 87426; 87804; 93306; 94640; G0378